=== PATIENT | female | born 1985 | race Caucasian/White ===

== ENCOUNTER 2016-07-27 20:35 | Emergency (ER) | payer OTHER ==
[~2016-07-27] VITALS: Ht 175.3 cm; Wt 109.1 kg
[~2016-07-27 20:35] MED LIST: ASPI-973 PO; LEVO125T6 PO
[2016-07-27 20:42] VITALS: BP 119/82; PULSE 85; RESP 15; O2SAT 100
--- NOTE | 2016-07-27 22:32 | ED.REPORT ---
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 She reports that she awakened with numbness of the lateral aspect of the left foot, ankle, and lower leg several days ago. Initially she thought that her "foot had fallen asleep", and walked around in attempt to relieve symptoms with no success. Patient denies any trauma to the affected extremity, any change or fluctuation in symptoms since onset, fever, bowel or urinary incontinence, and other areas of weakness/numbness/tingling. Nursing Notes Stated Complaint: NUMBNESS IN ANKLE AND FOOT Chief Complaint: Extremity Trauma Nursing Notes Reviewed: Yes Allergies: Coded Allergies: No Known Allergies (Verified , 07/27/16) Scheduled Aspirin (Aspirin) 81 Mg Tablet 81 MG PO DAILY Levothyroxine (Levothyroxine) 125 Mcg Tablet 125 MCG PO DAILY General Time Seen by MD: 22:32 Chief Complaint Leg injury left Hx Obtained From: Patient Arrived By: Walk-in Onset Occurred: 3 days ago Symptom Duration: Since onset Pertinent Negative: Pt denies other symptoms Similar Sx Previous: No Past Medical History Past Medical History 1. Sepsis. 2. Bacteremia with methicillin sensitive Staphylococcus aureus. 3. Early diskitis/vertebral osteomyelitis secondary to problem #2. 4. Opiate withdrawal syndrome. 5. Obesity. 6. Hypothyroidism. 7. History of intravenous drug abuse with methamphetamine/heroin. 8. Medical noncompliance. Past Surgical History Reports: Tonsillectomy Smoking History Current Every Day Smoker Social History Alcohol Use: Denies alcohol use Drug Use: In recovery (on Methadone), Cocaine, IV drugs, Meth Ambulatory Status Independent Review of Systems Musculoskeletal: Denies: Back pain, Extremity pain, Lumbar pain, Neck pain, Thoracic pain Neurologic: Reports: Numbness (Left Foot/Leg), Denies: Bladder dysfunction, Bowel dysfunction, Focal weakness Complete sys rev & neg: except as marked. Physical Exam Initial Vital Signs Vital Signs (First) Date Time Temp Pulse Resp B/P Pulse Ox O2 Delivery O2 Flow Rate FiO2 07/27/16 20:42 36.2 85 15 119/82 100 Room Air Initial VS: Reviewed Head / Eyes: Atraumatic, Normocephalic Neck: Supple, Non-tender, Full range of motion Upper Extremities: Vascular intact, Neuro intact, No swelling, No tenderness Skin: Warm, Dry, No cyanosis Neurologic: Alert, Oriented, Nonfocal Lower Extremity / Pelvis / MS: Atraumatic, Full range of motion, Non-tender, No deformity, Neurologic intact, Vascular intact Ankle / Foot: Atraumatic, Non-tender, No deformity, Vascular intact General/Constitutional: Awake, Alert, Well developed, Well nourished Appearance / Presentation: Positive: Obese Neurologic: Oriented X3, Speech NL, CN II - XII intact Weakness in dorsiflexion and plantar flexion of the left foot. Decreased sensation of the dorsal and lateral aspect of the left foot. Interpretation & Diagnostics Lab Results Interpretation Result Diagram: 07/27/16 2309 07/27/16 230 Test 07/27/16 23:09 White Blood Count 13.3th/mm3 (3.8-10.1) Red Blood Count 4.90mil/mm3 (3.90-5.20) Hemoglobin 12.8g/dL (12.0-15.6) Hematocrit 40.1% (35.0-46.0) Mean Corpuscular Volume 81.8fL (81-100) Mean Corpuscular Hemoglobin 26.1pg (27.0-35.0) Mean Corpuscular Hemoglobin Concent 31.9% (32.0-37.0) Red Cell Distribution Width 14.8% (12.3-15.4) Platelet Count 332bil/L (150-400) Neutrophils (%) (Auto) 59.8% (40-74) Lymphocytes (%) (Auto) 30.9% (14-46) Monocytes (%) (Auto) 6.9% (4-12) Eosinophils (%) (Auto) 1.8% (0-5) Basophils (%) (Auto) 0.3% (0-3) Sodium Level 135mEq/L (134-144) Potassium Level 4.3mEq/L (3.5-5.2) Chloride Level 97mEq/L (97-108) Carbon Dioxide Level 25mmol/L (18-29) Blood Urea Nitrogen 12mg/dL (6-20) Creatinine 0.67mg/dL (0.57-1.00) Estimat Glomerular Filtration Rate 147mL/min (>59) Glucose Level 100mg/dL (60-99) Calcium Level 8.9mg/dL (8.5-10.1) Total Bilirubin 0.5mg/dL (0.0-1.2) Aspartate Amino Transf (AST/SGOT) 25U/L (0-50) Alanine Aminotransferase (ALT/SGPT) 33U/L (0-32) Alkaline Phosphatase 85U/L (25-150) C-Reactive Protein 9.1mg/dL (0.0-0.5) Total Protein 8.7g/dL (6.4-8.4) Albumin 4.0g/dL (3.4-5.0) Re-Eval/Medical Decision Med Decision/Clinical Course 30-year-old female former IV drug user with history of epidural abscess 1 year ago and she was not fully treated due to leaving AMA after one month presenting with left foot drop that she woke up with 2 days ago. She has left foot drop and decreased sensation left lower leg lateral and dorsal foot. She has inability to dorsiflex or plantarflex her left foot. There is no evidence of infection. She has good capillary refill at this time. Given her history will perform MRI lumbar spine. Inflammatory markers are elevated. Signed out to Dr. Urbina. Re-Evaluation/Progress : Time of Eval: 23:11 Re-Evaluation/Progress Note: Discussed physical examination findings and need for MRI. Patient understands and agrees to the plan. Consultation : Referral / Consult Name: Zach Velarde MD Consulted With: On-call physician (Radiology) Call Returned at: 23:09 Relay Mechanic: Referred to other consult (MRI) Discharge & Departure Shift Change Sign-Out Patient Care Transferred: Yes Discussed Complaint(s): Yes Discharge Condition All VS Reviewed: Yes Referrals: Nicole Gonzalez PA-C (PCP) Care Transferred to: Dr. Urbina Care Transferred at: 00:00 Pradeep Attestation Portions of this note were transcribed by Arnaldo Patricio. I, Dr. Michael, personally performed the history, physical exam and medical decision-making; I reviewed and confirmed the accuracy of the information in the transcribed note. Signed by: Pradeep Alexander, 07/27/2016 - 23:43 copies to: Nicole Gonzalez PA-C, Ben M MD Jul 27, 2016 22:32 ARNALDO PATRICIO Jul 27, 2016 22:52
[2016-07-27 23:17] LABS: BASOPHILS % (AUTO) 0.3 % (0-3); EOSINOPHILS % (AUTO) 1.8 % (0-5); MONOCYTES % (AUTO) 6.9 % (4-12); Mean Corpuscular Hemoglobin 26.1 pg (27.0-35.0); Mean Corpuscular Volume 81.8 fL (81-100); NEUTROPHILS % (AUTO) 59.8 % (40-74); Platelet Count 332 bil/L (150-400)
--- NOTE | 2016-07-28 08:17 | DRSVH ---
PROCEDURE: MRI LUMBAR SPINE WITHOUT CONTRAST ([id number]) INDICATIONS: L foot drop h/o epidural abscess TECHNIQUE: Noncontrast sagittal T1 spin echo and T2 fast echo, sagittal STIR, axial T1 and T2 fast spin echo thr ough the lumbar spine. In cases with scoliosis, additional coronal T2 fast spin echo may be performe d. COMPARISON: None. FINDINGS: Image quality: Excellent. Alignment and Curvature: There is normal bony alignment. Bone Marrow: Marrow is of normal overall signal. Incidental faint possible L5 vertebral body betito ioma. No acute vertebral body compression fractures. Spinal Cord: Conus medullaris terminates at the L1 level. Visualized cord demonstrates normal signa l and size. Paraspinous Soft Tissues: No paravertebral masses. No epidural fluid collection identified. L1-L2: Normal appearance. L2-L3: Normal appearance. L3-L4: Disc desiccation and mild height loss with posterior annular fissure. Mild broad-based posteri or disc bulge and mild canal narrowing. No definite foraminal stenosis. L4-L5: Mild disc desiccation and height loss. Broad-based posterior disc bulge and posterior annular fissure. Mild canal narrowing. Partial effacement of the left or right lateral recesses. Bilateral fa cet disease, and low-grade bilateral foraminal narrowing L5-S1: Disc desiccation and mild height loss. Central disc protrusion with associated mild canal narr owing. There is also a left central disc protrusion with partial effacement of the left lateral reces s. Minimal partial effacement of the right lateral recess. Severe left foraminal stenosis. Mild righ t foraminal narrowing. IMPRESSION: No epidural fluid collection identified. Lower lumbar disc degeneration and facet arthropathy as detailed above with central and left central disc protrusion at L5-S1, and associated central canal and left lateral recess narrowing as above. Severe left L5-S1 foraminal stenosis. Dictated by: Zach Velarde M.D. on 07/28/2016 at 8:04 Approved by: Zach Velarde M.D. on 07/28/2016 at 8:14
== END 2016-07-28 02:29 | disposition home or self-care (01) ==
LOC: SED 20:35
DX: M54.16 Radiculopathy, lumbar region (principal); F19.20 Other psychoactive substance dependence, uncomplicated; F17.200 Nicotine dependence, unspecified, uncomplicated; Z86.14 Personal history of Methicillin resistant Staphylococcus aureus infection; Z87.39 Personal history of other diseases of the musculoskeletal system and connective tissue; Z86.69 Personal history of other diseases of the nervous system and sense organs; Z79.82 Long term (current) use of aspirin
CPT/HCPCS: 36415; 72148; 80053; 85025; 86140; 99284; G0463

== ENCOUNTER 2016-08-16 22:34 | Emergency (ER) | payer OTHER ==
[~2016-08-16] VITALS: Ht 175.3 cm; Wt 113.6 kg
[2016-08-16 22:41] VITALS: BP 117/69; PULSE 91; RESP 18; O2SAT 97
--- NOTE | 2016-08-16 22:55 | ED.REPORT ---
HPI-Extremity Problem Lower Date of Service Aug 16, 2016 ED Provider: Honey Moody MD A 30 year old female with a history of IV drug abuse, sepsis, and early diskitis /vertebral osteomyelitis presents to the ED complaining of left ankle and foot numbness. The pt has been experiencing this numbness for "a few weeks." She is unable to to dorsiflex or plantarflex her foot and has limited sensation. She was seen in the ED on 07/27/2016 and had an MRI scan, but left before the results were in. Staff were unable to contact her with the results. The pt's symptoms have not improved since her last visit, so she decided to come to the ED to finish radiology studies. The pt denies changes in bowel or bladder habits. The pt is on methadone and denies current IV drug use. Nursing Notes Stated Complaint: LEFT ANKLE NUMB Chief Complaint: Extremity Trauma Nursing Notes Reviewed: Yes Allergies: Coded Allergies: No Known Allergies (Verified , 07/27/16) Scheduled Aspirin (Aspirin) 81 Mg Tablet 81 MG PO DAILY Levothyroxine (Levothyroxine) 125 Mcg Tablet 125 MCG PO DAILY General Time Seen by MD: 22:55 Chief Complaint Other (Left foot numbness) Hx Obtained From: Patient Arrived By: Walk-in Onset Occurred: More than a week ago... Symptom Duration: Since onset Recent Healthcare: Recent doctor visit, Recent hospitalization Similar Sx Previous: Yes Past Medical History Past Medical History 1. Sepsis. 2. Bacteremia with methicillin sensitive Staphylococcus aureus. 3. Early diskitis/vertebral osteomyelitis secondary to problem #2. 4. Opiate withdrawal syndrome. 5. Obesity. 6. Hypothyroidism. 7. History of intravenous drug abuse with methamphetamine/heroin. 8. Medical noncompliance. Past Surgical History Reports: Tonsillectomy Smoking History Current Every Day Smoker Social History Alcohol Use: Denies alcohol use Drug Use: In recovery, Cocaine, IV drugs, Meth Ambulatory Status Independent Review of Systems Review of Systems Note: left foot numbness inability to move foot or toes denies changes in bowel or bladder habits Constitutional: Denies: Fever Musculoskeletal: Denies: Back pain Skin: Denies Rash Complete sys rev & neg: except as marked. Respiratory: Denies: Non-productive cough, Shortness of breath Cardiovascular: Denies: Chest pain GI: Denies: Abdominal pain Physical Exam Initial Vital Signs Vital Signs (First) Date Time Temp Pulse Resp B/P Pulse Ox O2 Delivery O2 Flow Rate FiO2 08/16/16 22:41 36.5 91 18 117/69 97 Room Air Initial VS: Reviewed Lower Extremity / Pelvis / MS: Atraumatic, Full range of motion Ankle / Foot: No deformity sensation and motor function of right foot intact unable to dorsiflex or plantarflex left foot no sensation or proprioception of left foot General/Constitutional: Awake, Alert Respiratory / Chest: Atraumatic, Breath sounds NL, Breath sounds = bilat, No respiratory distress Cardiovascular: Heart rate NL, Regular rhythm, Heart sounds NL Skin: Atraumatic, Color NL, No rash, Warm, Dry Neurologic: Oriented X3, Speech NL Head / Eyes: Atraumatic, Normocephalic, PERRL, EOMI ENT: Atraumatic, Airway patent, Mucous membranes moist Neck: Atraumatic, Supple, Full range of motion Abdomen: Atraumatic, Soft, Non-tender Back: Atraumatic, Full range of motion Upper Extremity / MS: Full range of motion open lesion on the palmar aspect of the right midforearm, 2 cm no surrounding erythema or edema, good granulation tissue Psychiatric: Affect NL, Mood NL Re-Eval/Medical Decision Med Decision/Clinical Course 30-year-old female with past medical history of IVDA, along with history of discitis and spinal epidural abscess here with left foot drop and numbness. Patient was seen July 272016 for similar complaints, and had an MRI at that time. It was limited slightly because there was no IV contrast, however, it was noted that there was no evidence of epidural abscess or discitis at that time. She did have canal stenosis and disc bulging. She has not followed up since with anyone. She is now back for the same complaint. She denies any change in bowel or bladder habits. Differential diagnosis includes but is not limited to disc bulging versus canal stenosis versus epidural abscess versus discitis. Given recent imaging, I do not feel the need to reimage her. She does have foot drop. I have referred her to neurosurgery on an outpatient basis , as I do not feel she has any emergent requirement for neurosurgical intervention at this time. She is aware and amenable to plan and will follow up as directed. Source of Hx: Old records Re-Evaluation/Progress : Time of Eval: 23:38 Patient Status: Condition improved Re-Evaluation/Progress Note: Pt rechecked, who is resting comfortably. The plan for discharge was discussed. The pt understands and agrees with the plan. All questions were addressed at this time. Counseled Regarding: Diagnosis, Lab results, Need for follow-up, When/why to return to ED Discharge & Departure Impression: Primary Impression: Left foot drop Disposition: Home Discharge Condition All VS Reviewed: Yes Condition: Stable Additional Instructions: Thank you for entrusting us with your care. Follow up with your primary care physician for further evaluation. Return to the emergency department if you develop any new or worsening symptoms. Contact Dr. Wayne Iyer, [facility] for further follow up. Referrals: Nicole Gonzalez PA-C (PCP) Pradeep Attestation Portions of this note were transcribed by Nathan Pineda. I, Dr. Moody personally performed the history, physical exam and medical decision-making; I reviewed and confirmed the accuracy of the information in the transcribed note. Signed by: Pradeep Santana, 08/16/2016 and 2343. copies to: Nicole Gonzalez PA-C, Rebecca A MD Aug 16, 2016 22:55 NATHAN PINEDA Aug 16, 2016 23:14
== END 2016-08-16 23:45 | disposition home or self-care (01) ==
LOC: SED 22:34
DX: M21.372 Foot drop, left foot (principal); E66.9 Obesity, unspecified; E03.9 Hypothyroidism, unspecified; F19.21 Other psychoactive substance dependence, in remission; F17.200 Nicotine dependence, unspecified, uncomplicated; Z68.37 Body mass index [BMI] 37.0-37.9, adult; Z86.69 Personal history of other diseases of the nervous system and sense organs; Z86.19 Personal history of other infectious and parasitic diseases; Z79.891 Long term (current) use of opiate analgesic; Z79.82 Long term (current) use of aspirin